=== PATIENT | male | born 1940 | race Caucasian/White ===

== ENCOUNTER 2020-03-22 11:36 | Outpatient (CLI) | payer MEDICARE, SELFPAY ==
--- NOTE | ~2020-03-22 | XR_ITS ---
EXAMINATION: XR chest 2V DATE: 03/22/2020 13:18 INDICATION: Prostate cancer TECHNIQUE: Frontal and lateral views of the chest are obtained COMPARISON: None available FINDINGS: The lungs are free of acute opacities. There is no pleural effusion or pneumothorax. The ca rdiomediastinal silhouette is normal. There is mild thoracic spondylosis. IMPRESSION: 1. No acute cardiopulmonary abnormality. Reviewed, dictated and finalized at location A.
--- NOTE | 2020-03-22 12:38 | ECG_ITS ---
Measurements Intervals [place] Rate: 53 P: 39 MO: 199 QRS: -15 QRSD: 89 T: 132 QT: 477 QTc: 451 Interpretive Statements SINUS BRADYCARDIA DELAYED PRECORDIAL R/S TRANSITION ST-T WAVE ABNORMALITY IN LAT/HIGH LAT LEADS- CONSIDER ISCHEMIA ABNORMAL ECG Electronically Signed On 03-25-2020 10:54:27 CDT by Diego Arana D.O.
[2020-03-22 13:15] LABS: Basophils Percent Auto 0.5 % (0.2-1.2); Eosinophils Absolute Auto 0.1 K/mm3 (0-0.3); Eosinophils Percent Auto 2.3 % (0-4.4); Hematocrit 42.5 % (42.0-52.0); Hemoglobin 14.7 g/dL (14.0-18.0); Immature Granulocyte Absolute 0.01 K/mm3 (0.00-0.031); Immature Granulocyte Percent A 0.2 % (0-0.5); Lymphocytes Absolute Auto 1.66 K/mm3 (0.9-3.2); Lymphocytes Percent Auto 29.5 % (18.3-44.2); Mean Corpuscular HGB Conc 34.6 g/dl (32-36); Mean Corpuscular Hemoglobin 33.5 pg (26-34); Mean Corpuscular Volume 96.8 fl (80-100); Mean Platelet Volume 9.6 fl (7.4-10.4); Monocytes Absolute Auto 0.5 K/mm3 (0.1-0.6); Monocytes Percent Auto 8.2 % (2.6-8.5); Neutrophils Absolute Auto 3.3 K/mm3 (1.3-6.7); Neutrophils Percent Auto 59.3 % (45.5-73.1); Platelet Count Result 166 k/mm3 (150-375); Red Blood Count 4.39 M/mm3 (4.6-6.20); Red Cell Distribution Width 12.3 % (11.5-14.5); White Blood Count 5.6 K/mm3 (4.5-10.0)
[2020-03-22 13:18] LABS: Add Urine Microscopic? YES; Appearance Urine Clear (Clear); Bilirubin Urine Negative (Negative); Blood Urine Negative (Negative); Color Urine Yellow (Yellow); Glucose Urine UA Negative (Negative); Ketones Urine Trace mg/dL (Negative); Leukocyte Esterase Ur Negative LEU/UL (Negative); Mucus Urine Rare /lpf; Nitrate Urine Negative (Negative); Protein Urine Negative (Negative); RBC Urine 0-2 /hpf (0-2); Specific Grav Ur 1.029 (1.001-1.035); Urobilinogen Urine Negative mg/dL (<2.0); WBC Urine 0-3 /hpf
[2020-03-22 13:26] LABS: Alanine Aminotransferase 21 U/L (4-50); Albumin Level 4.1 g/dL (3.5-5.1); Alkaline Phosphatase 78 U/L (38-126); Anion Gap 9.2 mmol/L (7-16); Aspartate Amino Transferase 34 U/L (17-59); Bilirubin,Total 0.9 mg/dL (0.2-1.3); Blood Urea Nitrogen 21 mg/dL (9-20); Calcium 9.2 mg/dL (8.4-10.2); Carbon Dioxide 27 mmol/L (22-30); Chloride 107 mmol/L (98-107); Estimated Glomerular Filt Rate > 60; Glucose 96 mg/dL (75-110); Potassium 4.2 mmol/L (3.4-5.0); Prothrombin Time 12.8 Seconds (11.1-14.7); Sodium 139 mmol/L (137-145)
[2020-03-22 13:27] LABS: Partial Thromboplastin Time 29.1 SECONDS (22.3-36.8)
== END 2020-03-22 11:37 | disposition home or self-care (01) ==
PROVIDERS: PCP Internal Medicine; Visit Provider Urology
DX: Z01.818 Encounter for other preprocedural examination (principal); C61 Malignant neoplasm of prostate; R94.31 Abnormal electrocardiogram [ECG] [EKG]
CPT/HCPCS: 36415; 71046; 80053; 81001; 85025; 85610; 85730; 93005

== ENCOUNTER 2020-04-02 00:52 | Outpatient (CLI) | payer MEDICARE, SELFPAY ==
[2020-04-02 19:35] LABS: SARS-CoV-2 RNA PCR Negative
== END 2020-04-02 00:53 | disposition home or self-care (01) ==
LOC: ANHCOVIDDT 00:52
PROVIDERS: PCP Internal Medicine; Visit Provider Urology
DX: Z01.812 Encounter for preprocedural laboratory examination (principal); Z11.59 Encounter for screening for other viral diseases
CPT/HCPCS: 87635; C9803; U0003

== ENCOUNTER 2020-05-27 13:29 | Outpatient (CLI) | payer MEDICARE, SELFPAY ==
[2020-05-27 13:53] LABS: Basophils Percent Auto 0.6 % (0.2-1.2); Eosinophils Absolute Auto 0.1 K/mm3 (0-0.3); Eosinophils Percent Auto 2.4 % (0-4.4); Hematocrit 43.6 % (42.0-52.0); Hemoglobin 14.9 g/dL (14.0-18.0); Immature Granulocyte Absolute 0.01 K/mm3 (0.00-0.031); Immature Granulocyte Percent A 0.2 % (0-0.5); Lymphocytes Absolute Auto 1.78 K/mm3 (0.9-3.2); Mean Corpuscular HGB Conc 34.2 g/dl (32-36); Mean Corpuscular Hemoglobin 33.4 pg (26-34); Mean Corpuscular Volume 97.8 fl (80-100); Mean Platelet Volume 9.7 fl (7.4-10.4); Monocytes Absolute Auto 0.5 K/mm3 (0.1-0.6); Monocytes Percent Auto 10.4 % (2.6-8.5); Neutrophils Absolute Auto 2.6 K/mm3 (1.3-6.7); Neutrophils Percent Auto 51.4 % (45.5-73.1); Platelet Count Result 170 k/mm3 (150-375); Red Blood Count 4.46 M/mm3 (4.6-6.20); White Blood Count 5.1 K/mm3 (4.5-10.0)
[2020-05-27 14:06] LABS: Alanine Aminotransferase 24 U/L (4-50); Albumin Level 4.3 g/dL (3.5-5.1); Alkaline Phosphatase 74 U/L (38-126); Anion Gap 5 mmol/L (8-16); Aspartate Amino Transferase 38 U/L (17-59); Bilirubin,Total 0.8 mg/dL (0.2-1.3); Blood Urea Nitrogen 22 mg/dL (9-20); Calcium 9.4 mg/dL (8.4-10.2); Carbon Dioxide 29 mmol/L (22-30); Chloride 106 mmol/L (98-107); Estimated Glomerular Filt Rate > 60; Glucose 89 mg/dL (75-110); Potassium 4.1 mmol/L (3.4-5.0); Sodium 140 mmol/L (137-145)
[2020-05-27 14:07] LABS: Prothrombin Time 13.1 Seconds (11.1-14.7)
[2020-05-27 14:08] LABS: Partial Thromboplastin Time 30.9 SECONDS (22.3-36.8)
[2020-05-27 14:42] LABS: Add Urine Microscopic? NO; Appearance Urine Clear (Clear); Bilirubin Urine Negative (Negative); Blood Urine Negative (Negative); Color Urine Yellow (Yellow); Glucose Urine UA Negative (Negative); Ketones Urine Negative (Negative); Leukocyte Esterase Ur Negative LEU/UL (Negative); Nitrate Urine Negative (Negative); Protein Urine Negative (Negative); Specific Grav Ur 1.028 (1.001-1.035); Urobilinogen Urine Negative mg/dL (<2.0)
== END 2020-05-27 13:30 | disposition home or self-care (01) ==
LOC: ANHSURGERY 13:31
PROVIDERS: PCP Internal Medicine; Visit Provider Urology
DX: C61 Malignant neoplasm of prostate (principal); Z01.812 Encounter for preprocedural laboratory examination
CPT/HCPCS: 36415; 80053; 81003; 85025; 85610; 85730; 86850; 86900; 86901

== ENCOUNTER 2020-05-28 01:04 | Outpatient (CLI) | payer MEDICARE, SELFPAY ==
[2020-05-28 19:25] LABS: SARS-CoV-2 RNA PCR Negative
== END 2020-05-28 01:05 | disposition home or self-care (01) ==
LOC: ANHCOVIDDT 01:05
PROVIDERS: PCP Internal Medicine; Visit Provider Urology
DX: Z01.812 Encounter for preprocedural laboratory examination (principal); Z20.828 Contact with and (suspected) exposure to other viral communicable diseases
CPT/HCPCS: 87635; C9803; U0003

== ENCOUNTER 2020-05-30 01:08 | Day surgery (SDC) | payer MEDICARE, SELFPAY ==
[2020-03-22 11:21] VITALS: BP 128/72; PULSE 60; RESP 20; TEMP 37.2; O2SAT 99; BMI 24.5
--- NOTE | 2020-03-25 18:35 | P.HP_ITS ---
H&P: HPI History of Present Illness Chief complaint: Prostate Ca Narrative: Giuseppe Vasquez is a 80 year old male, in overall good health with an excellent performance status, recently referred with a PSA of 16.6. Prostate biopsy showed Elsie 3+4=7 in 3 of 12 cores with 1 core demonstrating intraductal carcinoma. Staging CT scan of the abdomen and pelvis with contrast, bone scan and chest x-ray were unremarkable. Careful discussion of the therapeutic options for his high-risk prostate cancer, including active surveillance, androgen ablation, radiation therapy and its various forms and robotic assisted radical prostatectomy he has elected for the latter. He is aware the risk of this procedure including, but not limited to, adverse cardiopulmonary events, mortality, rectal injury, urinary incontinence and erectile dysfunction. Review of Systems Cardiovascular: Cardiovascular: Denies chest pain, Denies lightheadedness, Denies palpitations and Denies dyspnea Respiratory: Respiratory: Denies dyspnea Gastrointestinal: Gastrointestinal: Denies diarrhea, Denies nausea and Denies vomiting Genitourinary: Genitourinary: Denies hematuria and Denies dysuria Endocrine: Endocrine: Denies palpitations [facility], [facility] Social History Social History Smoking status: Never smoker Alcohol intake: never Substance use: never Spiritual care concerns: No Meds Home Medications and Allergies Home Medications Medication Instructions Recorded Confirmed Type L. gasseri-B. bifidum-B longum 1 cap PO DAILY 03/22/20 03/22/20 History [[facility]] atorvastatin 10 mg PO DAILY 03/22/20 03/22/20 History bimatoprost 1 drp OPHTHALMIC (EYE) DAILY 03/22/20 03/22/20 History latanoprost 1 drp OPHTHALMIC (EYE) DAILY 03/22/20 03/22/20 History xpcoipex-azm-zxfqz-vit K-lycop 1 tablet PO DAILY 03/22/20 03/22/20 History [One-A-Day Men[facility]] vit A,C and Z-imsriu-hnbsuqmq [Eye 1 tablet PO DAILY 03/22/20 03/22/20 History [facility] Lutein] Allergies Allergy/AdvReac Type Severity Reaction Status Date / Time No Known Allergies Allergy Verified 03/22/20 11:53 Exam Const: General: no acute distress Resp: Effort & Inspection: normal respiratory effort GI: Inspection: non-distended GI Palp: No abdominal tenderness and No Guarding due to palpation present (GI) Auscultation: normal bowel sounds Assessment and Plan Assessment and plan (1) Prostate cancer: Code(s): C61 - Malignant neoplasm of prostate Status: Acute Assessment and Plan: * Robotic assisted laparoscopic prostatectomy with bilateral pelvic lymphadenectomy.
[2020-04-03 13:24] VITALS: BMI 24.5
--- NOTE | 2020-05-24 15:34 | PC.NURSE ---
PT STATES NO CHANGE IN HEALTH HX SINCE LAST INTERVIEW. STRESS TEST DONE ~ 05/16/20
--- NOTE | 2020-05-27 07:41 | P.HP_ITS ---
H&P: HPI History of Present Illness Date/Time: 05/27/20 07:41 Chief complaint: Prostate Ca Narrative: Giuseppe Vasquez is a 80 year old male, who is in overall excellent health with a good performance status, recently referred with a PSA of 16.6. Prostate biopsy showed Elsie 3+4=7 in 3 of 12 cores with 1 core demonstrating intraductal carcinoma. Staging CT scan of the abdomen and pelvis with contrast, bone scan, and chest x-ray were unremarkable. Careful discussion of the therapeutic options for his high risk prostate cancer, including active surveillance, androgen ablation, radiation therapy in its various forms and robotic assisted radical prostatectomy led to his decision to proceed with radical prostatectomy. He is aware of the risk of this procedure including, but not limited to, adverse cardiopulmonary events, mortality, rectal injury, uri nary incontinence and erectile dysfunction. Patient has undergone cardiac evaluation with subsequent clearance and now presents for this procedure. Review of Systems Cardiovascular: Cardiovascular: Denies chest pain, Denies lightheadedness, Denies palpitations and Denies dyspnea Respiratory: Respiratory: Denies dyspnea Gastrointestinal: Gastrointestinal: Denies diarrhea, Denies nausea and Denies vomiting Genitourinary: Genitourinary: Denies hematuria and Denies dysuria Endocrine: Endocrine: Denies palpitations PMFSH Social History Social History Smoking status: Never smoker Alcohol intake: never Substance use: never Spiritual care concerns: No Meds Home Medications and Allergies Home Medications Medication Instructions Recorded Confirmed Type L. gasseri-B. bifidum-B longum 1 cap PO DAILY 03/22/20 05/24/20 History [[facility]] atorvastatin 10 mg PO DAILY 03/22/20 05/24/20 History bimatoprost 1 drp OPHTHALMIC (EYE) DAILY 03/22/20 05/24/20 History latanoprost 1 drp OPHTHALMIC (EYE) DAILY 03/22/20 05/24/20 History catyeizg-qto-kihda-vit K-lycop 1 tablet PO DAILY 03/22/20 05/24/20 History [One-A-Day [facility]] vit A,C and N-qmcnap-onffkxup [Eye 1 tablet PO DAILY 03/22/20 05/24/20 History [facility] Lutein] Allergies Allergy/AdvReac Type Severity Reaction Status Date / Time No Known Allergies Allergy Verified 05/24/20 15:13 Exam Const: General: no acute distress Resp: Effort & Inspection: normal respiratory effort GI: Inspection: non-distended GI Palp: No abdominal tenderness and No Guarding due to palpation present (GI) Auscultation: normal bowel sounds Assessment and Plan Assessment and plan (1) Prostate cancer: Code(s): C61 - Malignant neoplasm of prostate Status: Acute Assessment and Plan: * Robotic assisted radical retropubic prostatectomy with bilateral pelvic lymphadenectomy.
[2020-05-30] VITALS (11 sets, daily range): BP systolic 121–136; BP diastolic 57–75; PULSE 51–76; RESP 11–20; TEMP 36.1–36.8; O2SAT 93–100
[2020-05-30] MEDS: LACTATED RINGERS 1,000 ML 30 ML IV CONT ×2 (06:25→11:20)
--- NOTE | 2020-05-30 06:35 | WPDANESEPPF ---
Anes - Initial Pre Proc Eval Procedure: Operation Date: 05/30/20 07:30 Proposed Procedures p Robotic Assisted Radical Prostatectomy, Bilateral Pelvic Lymphadenectomy - Gil Calvo MD Date/Time: 05/30/20 06:35 Surgeon: Gil Calvo MD Pre Op Diagnosis: Prostate Ca Patient Data Age: 80 Gender: M Height: 6 ft Weight: 81.9 kg Last Vital Signs Temp 37.2 C 03/22/20 11:21 Pulse 60 03/22/20 11:21 Resp 20 03/22/20 11:21 BP 128/72 03/22/20 11:21 Pulse Ox 99 03/22/20 11:21 Allergies Allergy/AdvReac Type Severity Reaction Status Date / Time No Known Allergies Allergy Verified 05/24/20 15:13 Home Medications Medication Instructions Recorded Confirmed Type L. gasseri-B. bifidum-B longum 1 cap PO DAILY 03/22/20 05/24/20 History [[facility] [place] [facility]] atorvastatin 10 mg PO DAILY 03/22/20 05/24/20 History bimatoprost 1 drp OPHTHALMIC (EYE) DAILY 03/22/20 05/24/20 History latanoprost 1 drp OPHTHALMIC (EYE) DAILY 03/22/20 05/24/20 History nrtglkww-jyh-qxpyq-vit K-lycop 1 tablet PO DAILY 03/22/20 05/24/20 History [One-A-Day [facility] 50 [facility]] vit A,C and C-lfdxia-abgxgptu [Eye 1 tablet PO DAILY 03/22/20 05/24/20 History [facility] Lutein] Patient hx anesthesia problems: none Family hx anesthesia problems: none [facility] Past Medical History Medical History (Updated 05/30/20 @ 06:47 by Jerrod Royal MD) Hyperlipidemia Surgical History Surgical History H/O arthroscopic knee surgery Social History Social History Smoking status: Never smoker Alcohol intake: never Substance use: never Living arrangements: with family Spiritual care concerns: No Anes - Eval Final PreProcedure Day of Procedure 05/30/20 06:35 Patient weight: normal Heart: regular rate and rhythm Lungs: clear to auscultation Airway: Mallampati scale class II Neurological: alert and oriented Last oral intake: >/= 8 hours ASA classification: III Emergent: no Anesthetic plan: proceed Anesthesia type and monitoring: general ETT and standard monitoring Informed Consent: The patient's anesthetic plan and its attendant risks and benefits were discussed with the patient/family/POA. Questions were solicited and answers provided to the satisfaction of the patient/family/POA.
--- NOTE | 2020-05-30 06:47 | WPDHPUPDATE1 ---
History and Physical Update Update Date/Time: 05/30/20 06:47 History and Physical has been reviewed, including an updated exam of the patient. There are NO changes in the patient's condition. Risks, benefits, and alternatives have been discussed and questions answered. Patient agrees to proceed with procedure.
[2020-05-30] MEDS: ceFAZolin 2 GM/D5W 50 ML 2 GM/50 ML BAG IVPB (07:26)
--- NOTE | 2020-05-30 10:54 | PM.PROC ---
Procedure Note - Detailed Date of procedure: 05/30/20 Pre-op diagnosis: Prostate Ca Post-op diagnosis: same Procedure performed: 1. Robotic assisted, bilateral nerve-sparing radical retropubic prostatectomy. 2. Bilateral pelvic lymphadenectomy. Description of procedure: The patient was brought to the operative suite, where he was prepped and draped in routine sterile fashion while in a dorsal lithotomy, deep Trendelenburg position. A supraumbilical 10 mm trocar was placed after insufflation of the abdomen with a Veress needle. Three robotic ports were then placed under direct vision. Two of these were placed in the right lower quadrant - 10 cm and 20 cm lateral to, and in line with, the umbilicus. A third robotic trocar was placed 10 cm to the left of the umbilicus, and 20 cm to the left of the umbilicus, a 12 mm standard laparoscopic trocar was placed to be used as an tiler's assistant port. Lastly, a 5 mm trocar was placed in the left upper quadrant midway between the umbilicus and the left robotic trocar. Attention was then turned to the prostatectomy. I opted for a posterior approach in this patient. An incision was made in the parietal peritoneum along the posterior bladder/posterior prostate about 2 cm above the reflection of the peritoneum over the anterior rectum. The seminal vesicles and vas deferens were immediately identified. Dissection is undertaken in a fashion so as to avoid electrocautery as much as possible, particularly near the tips of the seminal vesicles. Dissection was also carried out in the midline so as to avoid any encounters with the ureters. The vas deferens and the seminal vesicles were dissected in their entirety to the base of the prostate. The plane anterior to Denoviller's fascia, anterior to the rectum and posterior to the prostate was then developed. I then dropped the bladder by incising the anterior parietal peritoneum just lateral to the median umbilical ligaments bilaterally. The bladder was dropped from the anterior abdominal and pelvic wall. and dropping the bladder it became apparent that the dome was protruding into a direct right inguinal hernia. This was reduced with ease. I did consult with one of the general surgeons who recommended fixing this only at a later time if it becomes problematic.The endopelvic fascia was identified and incised bilaterally, allowing for dissection of the posterior-lateral aspect of the prostate. The puboprostatic ligaments were transected near their origin from the posterior pubic ramus. This posterior lateral dissection of the prostate is also undertaken in a fashion so as to avoid electrocautery as much as possible. The dorsal vein of the penis is then secured with an 0 -Vicryl ligature. Attention is then turned to the bladder neck. The anterior bladder neck is incised at the vesico-prostatic junction. The previously placed urethral catheter was drawn through the urethrotomy. A very small bladder neck was maintained throughout the remainder of this dissection. The posterior bladder neck was incised in a fashion so as to avoid any injury to the ureteral orifices. Again, the small aperture of the bladder neck was maintained. The previously dissected vas deferens and the seminal vesicles were brought through the posterior bladder neck incision. The lateral prostatic pedicles were then carefully dissected from the lateral aspect of the prostate bilaterally. The prostatic pedicles were secured with Weck clips and transected. The neurovascular bundles were carefully dissected from the posterior-lateral aspect of the prostate. The dorsal vein of the penis was incised with electrocautery. Using cold scissors, the urethra was incised. After withdrawing the previously placed urethral catheter, the posterior urethra was sharply incised, as was the rectalurethralis muscle. Attention was then turned to a bilateral pelvic lymphadenectomy. The limits of this dissection were similar bilaterally.
[2020-05-30] MEDS: fentaNYL CITRATE INJ (*CRX) 100 MCG/2 ML VIAL 25 MCG IV PUSH ×2 (11:29→11:44)
--- NOTE | 2020-05-30 12:25 | PC.NURSE ---
This patient, Giuseppe Vasquez, was admitted to 3 [facility] Surg Room 300-01. Patient/family oriented to hospital policies and general routines including ID bracelet, bed and alarms, visiting hours, pain management, procedures, bathroom and other care routines, personal items, smoking policy, room service/diet, and visiting hours. Valuables list has been completed.Report from Anna KENNEDY Information on how to activate the Rapid Response Team has been discussed. Patient/Family are encouraged to report perceived risks to care and to ask questions if they do not understand what they are told or what they should do.
[2020-05-30] MEDS: LACTATED RINGERS 1,000 ML 125 ML IV CONT ×2 (12:37→20:15)
[2020-05-31] VITALS: BP 132/60; PULSE 74; RESP 18; TEMP 36.9; O2SAT 94
[2020-05-31 06:00] VITALS: BP 133/74; PULSE 59; RESP 18; TEMP 36.6; O2SAT 99
[2020-05-31] MEDS: LACTATED RINGERS 1,000 ML 125 ML IV CONT (06:14)
[2020-05-31 06:28] LABS: Hematocrit 36.1 % (42.0-52.0); Hemoglobin 12.7 g/dL (14.0-18.0)
[2020-05-31 06:40] LABS: Anion Gap 5 mmol/L (8-16); Blood Urea Nitrogen 21 mg/dL (9-20); Calcium 8.6 mg/dL (8.4-10.2); Carbon Dioxide 25 mmol/L (22-30); Chloride 107 mmol/L (98-107); Estimated CRCL calculation 57 ml/min; Estimated Glomerular Filt Rate > 60; Glucose 119 mg/dL (75-110); Potassium 4.1 mmol/L (3.4-5.0); Sodium 137 mmol/L (137-145)
--- NOTE | 2020-05-31 06:50 | WPDUROPN2 ---
Progress Note: A&P Assessment and Plan (1) Prostate cancer: Code(s): C61 - Malignant neoplasm of prostate Status: Acute Assessment and Plan: Doing well POD #1 Increase diet and ambulation. Home this afternoon if continues to do well. Subjective Subjective Date/Time Seen: 05/31/20 06:50 POD #1 RALP/BPLND - comfortable, no complaints Review of Systems Cardiovascular: Cardiovascular: Denies chest pain, Denies lightheadedness, Denies palpitations and Denies dyspnea Respiratory: Respiratory: Denies dyspnea Gastrointestinal: Gastrointestinal: Denies diarrhea, Denies nausea and Denies vomiting Genitourinary: Genitourinary: Denies hematuria and Denies dysuria Endocrine: Endocrine: Denies palpitations Exam Const: General: no acute distress Resp: Effort & Inspection: normal respiratory effort GI: Inspection: non-distended GI Palp: No abdominal tenderness and No Guarding due to palpation present (GI) Auscultation: normal bowel sounds Objective Data Vital Signs Vital Signs: Vital Signs - 24 hr 05/30/20 11:09 05/30/20 11:25 05/30/20 11:40 Temperature 97.0 F L Pulse Rate 73 69 70 Respiratory Rate 13 11 L 14 Blood Pressure 136/65 131/75 123/61 Pulse Oximetry 98 96 93 05/30/20 11:55 05/30/20 12:10 05/30/20 12:30 Temperature 97.7 F Pulse Rate 69 59 L 51 L Respiratory Rate 17 12 18 Blood Pressure 125/64 126/67 135/66 Pulse Oximetry 98 98 93 05/30/20 12:45 05/30/20 13:15 05/30/20 14:15 Temperature Pulse Rate 55 L 60 63 Respiratory Rate 18 18 20 Blood Pressure 125/57 L 130/61 127/60 Pulse Oximetry 100 100 100 05/30/20 19:30 05/30/20 20:00 05/31/20 00:00 Temperature 98.3 F 98.4 F Pulse Rate 76 74 Respiratory Rate 20 18 Blood Pressure 121/58 L 132/60 Pulse Oximetry 94 95 94 05/31/20 06:00 Temperature 97.8 F Pulse Rate 59 L Respiratory Rate 18 Blood Pressure 133/74 Pulse Oximetry 99 Intake/Output Intake/Output: Intake & Output 05/28/20 05/29/20 05/30/20 05/31/20 23:59 23:59 23:59 23:59 Intake Total 1520 1350 Output Total 250 950 Balance 1270 400 Meds/Results Medications: Active Medications Generic Name Dose Route Start Last Admin Trade Name Freq PRN Reason Stop Dose Admin Atorvastatin Calcium 10 mg 05/31/20 09:00 Lipitor PO DAILY [facility] Hyoscyamine 0.125 mg 05/30/20 12:17 Levsin Tablet SUBLINGUAL Q4H PRN Bladder Spasm Lactated Ringer's 1,000 mls @ 125 mls/hr 05/30/20 12:17 05/31/20 06:14 Lr - Lactated Ringers Iv IV CONT 125 mls/hr .Q8H MARYAN Administration Acetaminophen 1,000 mg in 100 mls @ 400 mls/hr 05/30/20 13:00 05/31/20 06:15 Ofirmev 1,000 Mg Ivpb IVPB 05/31/20 13:01 400 mls/hr Q6H MARYAN Administration Ketorolac Tromethamine 15 mg 05/30/20 12:17 Toradol Inj IV PUSH 05/31/20 12:18 Q6H PRN Pain Rated 4-6 Lactobacillus Acidophilus 1 tablet 05/31/20 09:00 Lactinex Chewable Tablet PO DAILY [facility] Latanoprost 1 drop 05/30/20 12:25 05/30/20 15:27 Xalatan EACH EYE Not Given DAILY [facility] Levofloxacin 500 mg 05/31/20 09:00 Levaquin Tab PO DAILY [facility] Naloxone HCl 0.1 mg 05/30/20 12:17 Narcan IV PUSH Q2M PRN Opiate Reversal Non-Formulary Medication 1 drop 05/31/20 09:00 Bimatoprost EACH EYE 06/30/20 09:01 DAILY [facility] Labs Labs: Laboratory Results - last 24 hr 05/31/20 05/31/20 05:47 05:47 Hgb 12.7 L Hct 36.1 L Sodium 137 Potassium 4.1 Chloride 107 Carbon Dioxide 25 Anion Gap 5 L BUN 21 H Creatinine 1.00 Estim Creat Clear Calc 57 Estimated GFR > 60 Glucose 119 H Calcium 8.6
[2020-05-31] MEDS: ACIDOPHILUS/BULGARICUS CHEWABLE TABLET 1 TABLET PO (08:15)
[2020-05-31] MEDS: ATORVASTATIN 10 MG TABLET PO (08:15)
[2020-05-31] MEDS: LATANOPROST 0.005% OP SOLN 2.5 ML BTL 1 DROP EACH EYE (08:15)
--- NOTE | 2020-05-31 08:21 | WPDANESPN ---
Anes - Prog Note Post-Op Date/Time: 05/31/20 08:21 Cardiovascular status: normal Respiratory status: normal Airway patency: baseline Mental status: baseline Post-Op hydration status: normal Vital Signs: Last Vital Signs Temp 36.6 C 05/31/20 06:00 Pulse 59 L 05/31/20 06:00 Resp 18 05/31/20 06:00 BP 133/74 05/31/20 06:00 Pulse Ox 99 05/31/20 06:00 Pain Score (VAS): 3 I/O: Intake & Output 05/30/20 05/31/20 05/31/20 23:59 07:59 15:59 Intake Total 1370 1450 Output Total 200 950 Balance 1170 500 Laboratory Tests 05/31/20 05:47 05/31/20 05:47 05/31/20 05/31/20 05:47 05:47 Hgb 12.7 L Hct 36.1 L Sodium 137 Potassium 4.1 Chloride 107 Carbon Dioxide 25 Anion Gap 5 L BUN 21 H Creatinine 1.00 Estim Creat Clear Calc 57 Estimated GFR > 60 Glucose 119 H Calcium 8.6 Post-procedural complaints: none Patient Feedback: Patient satisfied with anesthetic care.
[2020-05-31 10:02] VITALS: BP 143/76; PULSE 66; RESP 18; TEMP 36.7; O2SAT 99
--- NOTE | 2020-05-31 12:27 | PM.DS ---
DS: Admitting Diagnosis Admitting Diagnosis Admitting Diagnosis: Prostate Ca DS: Discharge Diagnosis Discharge Diagnosis (1) Prostate cancer: Code(s): C61 - Malignant neoplasm of prostate Status: Acute DS: Summary Time Spent with Patient Time attestation: Total time spent providing and/or coordinating discharge services: 15min. Condition on discharge: Good Clinical course: This patient was admitted on the morning of his planned robotic prostatectomy. This procedure was uneventful, as was his postoperative course. By the evening of the procedure he was sitting at the bedside in tolerating a liquid diet. The following morning he was ambulating freely and tolerating regular food. His catheter drainage remained essentially clear throughout. His postoperative hemoglobin and serum creatinine were unremarkable. At the time of discharge he has been instructed in appropriate care for his Kong catheter with both a leg bag and bedside bag. He will be discharged with plans to follow-up in 1 week with a cystogram. Exam Const: General: no acute distress Resp: Effort & Inspection: normal respiratory effort GI: Inspection: non-distended GI Palp: No abdominal tenderness and No Guarding due to palpation present (GI) Auscultation: normal bowel sounds DS: Data Data Completed and Pending Pending studies at discharge: Pending at discharge 05/30/20 09:44 Surgical [PTH] Routine Labs on day of discharge: Labs from last 24 hours 05/31/20 05/31/20 05:47 05:47 Hgb 12.7 L Hct 36.1 L Sodium 137 Potassium 4.1 Chloride 107 Carbon Dioxide 25 Anion Gap 5 L BUN 21 H Creatinine 1.00 Estim Creat Clear Calc 57 Estimated GFR > 60 Glucose 119 H Calcium 8.6 Discharge Plan Discharge Patient Disposition: Home, Self-Care Discharge Instructions: 1) Kong catheter -> leg bag / bedside bag at night. 2) No lifting/straining >15lbs. x3 weeks. 3) No driving x1-week. 4) Resume normal, pre-operative diet. 5) My office will contact regarding follow-up in 1-week with cystogram. Patient Instructions: Pain Management (DC), Kong Catheter Placement and Care (DC), Urinary Leg Bag (GEN), Robot Assisted Laparoscopic Prostatectomy (DC), How to Change a Catheter Drainage Bag (DC) Discharge Medications: New hydrocodone-acetaminophen 5-325 mg tablet 1 - 2 tablet PO Q6H PRN (Reason: pain) Qty: 20 RF: 0 ciprofloxacin HCl 500 mg tablet 500 mg PO Q12H Qty: 10 RF: 0 hyoscyamine sulfate 0.125 mg tablet 0.125 mg PO Q6H PRN (Reason: bladder spasms) Qty: 20 RF: 2 docusate sodium [Colace] 100 mg capsule 100 mg PO DAILY Qty: 30 RF: 0 Continued latanoprost 0.005 % Drops 1 drp OPHTHALMIC (EYE) DAILY RF: 0 atorvastatin 10 mg Tablet 10 mg PO DAILY RF: 0 [facility] Lutein 1,000 unit-200 mg-60 unit-2 mg Tablet 1 tablet PO DAILY RF: 0 bimatoprost 0.01 % Drops 1 drp OPHTHALMIC (EYE) DAILY RF: 0 [facility] 1.5 billion cell Capsule 1 cap PO DAILY RF: 0 One-A-Day Men's 50 Plus 400-20-370 mcg Tablet 1 tablet PO DAILY RF: 0 Other Ambulatory Orders: SARS-CoV-2 RNA, Qual RT-PCR (Routine) Timeframe: 1 Month Facility: [facility] - Location: [facility] Thru Testing Ordered By: Gil Calvo Type and Screen 14 Day (Routine) Timeframe: 2 Months Location: Determined by Patient Ordered By: Gil Calvo UA w/Micro w/Reflex Culture (Routine) Timeframe: 2 Months Location: Determined by Patient Ordered By: Gil Calvo
--- NOTE | 2020-06-01 10:12 | PC.NURSE ---
Contacted patient for discharge phone call follow up. Patient asked why he would need the pain medication for bladder spasms and how to know when to use it. Patient also had questions about having a bowel movement after surgery.
== END 2020-05-31 13:50 | disposition home or self-care (01) ==
LOC: ANHSURGERY 08:26 → ANH3MEDSUR 12:28
PROVIDERS: PCP Internal Medicine; Visit Provider Urology
PROC: 0VT04ZZ Resection of Prostate, Percutaneous Endoscopic Approach (ICD-10-PCS; CPT 55867; principal; 2020-05-30 07:30)
DX: C61 Malignant neoplasm of prostate (principal); E78.5 Hyperlipidemia, unspecified
CPT/HCPCS: 55866; 38571; 36415; 80048; 85014; 85018; 88305; 88307; A9270; J0131; J0690; J1100; J2405; J2704; J3010; J7030; J7120

== ENCOUNTER 2020-06-07 12:34 | Outpatient (CLI) | payer MEDICARE, SELFPAY ==
--- NOTE | ~2020-06-07 | XR_ITS ---
XR cystogram DATE: 06/07/2020 13:15 INDICATION: Prostate cancer TECHNIQUE: Fluoroscopy and spot images obtained during filling of radiopaque contrast material was gr avity COMPARISON: None FINDINGS: There is mild trabeculation of the urinary bladder. No filling defect other than the Kong catheter is noted. There was leakage of contrast material past the Kong catheter through the urethra . No extravasation of contrast material from the urinary bladder. No vesicoureteral reflux. IMPRESSION: Urinary incontinence Mild mucosal trabeculation of the urinary bladder Reviewed, dictated and finalized at Location A. Reviewed, dictated and finalized at location A.
== END 2020-06-07 12:35 | disposition home or self-care (01) ==
LOC: ANHIMG 12:39
PROVIDERS: PCP Internal Medicine; Visit Provider Urology
DX: C61 Malignant neoplasm of prostate (principal)
CPT/HCPCS: 51600; 74430; Q9967